=== PATIENT | male | born 1985 | race Caucasian/White ===

== ENCOUNTER 2022-08-07 13:00 | Emergency (ER) | payer SELFPAY ==
[~2022-08-07] VITALS: Ht 193 cm; Wt 122.5 kg
[2022-08-07] MEDS ORDERED: KETOROLAC TROMETHAMINE 30 MG/ML VIAL ONE (13:18)
[2022-08-07] MEDS ORDERED: FAMOTIDINE 20 MG/2 ML VIAL IV ONE (13:19)
[2022-08-07] MEDS ORDERED: ONDANSETRON HCL INJ 2MG/ML 2ML 2 MG/ML VIAL ONE (13:19)
[2022-08-07] MEDS ORDERED: FAMOTIDINE 20 MG/2 ML VIAL IV STA (14:20)
[2022-08-07] MEDS ORDERED: ONDANSETRON HCL INJ 2MG/ML 2ML 2 MG/ML VIAL IV STA (14:20)
[2022-08-07] MEDS ORDERED: SODIUM CHLORIDE 0.9% IV ONE (14:30)
== END 2022-08-07 13:50 | disposition home or self-care (01) ==
LOC: FSED 13:36
DX: Z76.5 Malingerer [conscious simulation] (principal); F11.20 Opioid dependence, uncomplicated; M54.89 Other dorsalgia; I10 Essential (primary) hypertension; Z88.0 Allergy status to penicillin
CPT/HCPCS: 80048; 81003; 85025; J1885; J2405